=== PATIENT | female | born 1945 | race Caucasian/White ===

== ENCOUNTER 2016-08-27 16:53 | Emergency (ER) | payer MEDICARE, OTHER ==
[2016-08-27] MEDS ORDERED: ASPIRIN81 MG PO (17:46)
[2016-08-27] MEDS ORDERED: MOBIC15 MG PO (17:46)
[2016-08-27] MEDS ORDERED: TOPROL XL50 MG PO (17:46)
[2016-08-27] MEDS ORDERED: PRAVACHOL40 MG PO (17:47)
[2016-08-27] MEDS ORDERED: VENLAFAXINE HCL75 M2 PO (17:48)
== END 2016-08-27 19:15 | disposition short-term general hospital (02) ==
LOC: ER 16:53
DX: R11.2 Nausea with vomiting, unspecified (principal); R41.0 Disorientation, unspecified; I67.4 Hypertensive encephalopathy; F41.9 Anxiety disorder, unspecified; E78.00 Pure hypercholesterolemia, unspecified; M19.90 Unspecified osteoarthritis, unspecified site; L82.1 Other seborrheic keratosis; F17.210 Nicotine dependence, cigarettes, uncomplicated; Z79.82 Long term (current) use of aspirin; Z79.899 Other long term (current) drug therapy
CPT/HCPCS: G0480; J0360; J2405; J2765

== ENCOUNTER → 2016-09-18 | Outpatient (CLI) | payer OTHER, MEDICARE ==
[~2016-09-18] MED LIST: ASPIRIN81 MG PO; MOBIC15 MG PO; PRAVACHOL40 MG PO; TOPROL XL50 MG PO; VENLAFAXINE HCL75 M2 PO
== END | disposition short-term general hospital (02) ==
LOC: CLNEUR 13:19
DX: I63.9 Cerebral infarction, unspecified (principal); I10 Essential (primary) hypertension; E78.5 Hyperlipidemia, unspecified; F17.200 Nicotine dependence, unspecified, uncomplicated